=== PATIENT | male | born 1995 | race Hispanic/Latino ===

== ENCOUNTER 2021-07-10 20:35 | Emergency (ER) | payer OTHER ==
[2021-07-10 23:33] LABS: HIV (1/2) Antibody/Antigen Non-Reactive (NonReactive); HIV 1/2 INDEX 0.09 S/CO (<1.00); Hep C IgG Ab Non-Reactive (NonReactive); Hep C Index 0.09 S/CO (0-0.79)
[2021-07-10 23:37] LABS: HBSAB Concentration 23.87 mIU/mL; Hep B Surf AB Reactive (NonReactive)
== END 2021-07-10 20:55 | disposition home or self-care (01) ==
LOC: ERS 20:35
DX: Z77.21 Contact with and (suspected) exposure to potentially hazardous body fluids (principal)
CPT/HCPCS: 86706; 86803; 87389; 99283

== ENCOUNTER 2024-09-09 15:50 | Emergency (ER) | payer SELFPAY, OTHER ==
[2024-09-09] MEDS ORDERED: Naproxen 500 MG TAB ONE (17:09)
[2024-09-09] MEDS ORDERED: Cyclobenzaprine 10 MG TAB ONE (17:09)
== END 2024-09-09 17:50 | disposition home or self-care (01) ==
LOC: ERS 15:50
DX: S39.012A Strain of muscle, fascia and tendon of lower back, initial encounter (principal); V89.2XXA Person injured in unspecified motor-vehicle accident, traffic, initial encounter
CPT/HCPCS: 72100; 72125